=== PATIENT | male | born 1950 | race Caucasian/White ===

== ENCOUNTER → 2016-11-15 | Day surgery (SDC) | payer MEDICARE, OTHER ==
[~2016-11-15] MED LIST: ASPI-630 PO; ATOR40TA59 PO; DOXA2TAB2 PO; HYDROmorphone 2 MG/ML VIAL IV PRN; IV RINGERS,LACTATED 1000ML 1,000 ML IV SCH; LIDOCAINE 1% 1 ML SYRINGE. ID PRN; MORPHINE SULFATE 2 MG/ML DISP.SYRIN. IV PRN; ONDANSETRON PF 4 MG/2 ML VIAL. IV PRN; PROCHLORPERAZINE 10 MG/2 ML VIAL. IV PRN; PROPOFOL 20 ML IV ONE; fentaNYL PF VIAL 100 MCG/2 ML VIAL IV PRN
[2016-11-15 10:00] VITALS: BP 110/70
--- NOTE | 2016-11-16 16:35 | PATHOLOGY ---
PATHOLOGY REPORT * * * * * * * * FINAL DIAGNOSIS: Colorectal biopsy, rectal polyp: - Hyperplastic polyp. COMMENT: There are no adenomatous changes or evidence of malignancy. (JPM:mgr; 11/16/2016) REPORT ELECTRONICALLY SIGNED BY: Maria Elena Ly M.D. DATE/TIME: 11/16/2016 16:34 * * * * * * * * GROSS PATHOLOGY: Received in formalin labeled "Maria Elena Kamara, rectal polyp," is a segment of waggoner soft tissue measuring 0.3 cm in maximum dimension. The specimen is submitted entirely in cassette A1. (JPM; 11/15/16) INITIAL CPT CODE(S): A; 71514 Professional services performed by [employer] [place] [address] Technical services performed by [employer] at [address] [place] [address], [facility] [address] [address]. SPECIMEN(S) RECEIVED: A.Rectal polyp CLINICAL HISTORY: Family history of cancer PATIENT: MARIA ELENA KAMARA Jorden /AGE: 1001/23/1950 (Age: 66) PATIENT #: [id number] ALT CASE #: SPECIMEN COLLECTION DATE: 11/15/2016 SPECIMEN RECEIVED DATE: 11/15/2016 [facility] - [id number] [place] [address] - PHONE: [phone] * * * END OF REPORT * * *
== END | disposition home or self-care (01) ==
LOC: ENDOS 07:57
PROVIDERS: ATTEND Internal Medicine Gastroenterology
DX: Z08 Encounter for follow-up examination after completed treatment for malignant neoplasm (principal); Z80.0 Family history of malignant neoplasm of digestive organs; K64.0 First degree hemorrhoids; K62.1 Rectal polyp; K57.30 Diverticulosis of large intestine without perforation or abscess without bleeding; E78.00 Pure hypercholesterolemia, unspecified; E11.9 Type 2 diabetes mellitus without complications; Z87.39 Personal history of other diseases of the musculoskeletal system and connective tissue
CPT/HCPCS: 45380; 82962; 88305; J2704